=== PATIENT | female | born 1975 | race Caucasian/White ===

== ENCOUNTER → 2017-05-03 | Outpatient (CLI) | payer BC | END | disposition home or self-care (01) | LOC: CANPRECLI → LABWHC1 16:35 | PROVIDERS: ATTEND Otolaryngology | DX: Z53.9 Procedure and treatment not carried out, unspecified reason (principal) ==

== ENCOUNTER → 2018-07-19 | Outpatient (CLI) | payer BC ==
--- NOTE | 2018-07-19 16:41 | US ---
EXAMINATION TYPE: US pelvic complete DATE OF EXAM: 07/19/2018 COMPARISON: NONE CLINICAL HISTORY: 43-year-old female N92.4 EXCESSIVE BLEEDING IN PREMENOPAUSAL PERIOD, patient went f or a period of 70 days without menses and has had two episodes of menses recently TECHNIQUE: Transabdominal (TA). Findings: EXAM MEASUREMENTS: Uterus: 11.2 x 5.3 x 5.9cm Endometrial Stripe: 0.4cm Right Ovary: 2.7 x 2.1 x 2.1cm Left Ovary: 2.3 x 1.9 x 2.0cm 1. Uterus: Anteverted, wnl 2. Endometrium: wnl 3. Right Ovary: wnl 4. Left Ovary: wnl 5. Bilateral Adnexa: wnl 6. Posterior cul-de-sac: wnl IMPRESSION: Unremarkable transabdominal sonographic examination of the pelvis.
== END | disposition home or self-care (01) ==
LOC: RADUSWWP 12:52
PROVIDERS: ATTEND Internal Medicine
DX: N92.4 Excessive bleeding in the premenopausal period (principal)
CPT/HCPCS: 76856

== ENCOUNTER → 2019-06-03 | Outpatient (CLI) | payer BC ==
[2019-06-04 11:38] LABS: Lobster IgE 1.71 kU/L (<0.10); Lobster IgE Class CLASS 2
== END | disposition home or self-care (01) ==
LOC: LABWHC1 15:20
PROVIDERS: ATTEND Allergy & Immunology
DX: L50.1 Idiopathic urticaria (principal)
CPT/HCPCS: 36415; 86003

== ENCOUNTER 2019-06-05 | Observation (INO) | payer BC | END 2019-06-07 13:49 | disposition home or self-care (01) | PROVIDERS: ADMIT Internal Medicine | CPT/HCPCS: 96376 ×2; 96361 ×3; 96375 ×2; 96374; 99285; 36415; 94640 ×3; 86738 ×2; 80053; 86696; 86694; 86695; 83605; 85025; 87040; 87502; 71046; G0378 ×3; J1200; J2920 ×2; J2930; C9113 ==

== ENCOUNTER 2022-01-27 13:34 | Emergency (ER) | payer BC ==
[2022-01-27 13:42] VITALS: TEMP 98.3
[2022-01-27] MEDS ORDERED: diphenhydrAMINE 50 MG/ML 1 ML VIAL IVP STA (16:42)
[2022-01-27] MEDS ORDERED: SODIUM CHLORIDE 0.9% 1,000 ML IV STA (16:42)
[2022-01-27] MEDS ORDERED: KETOROLAC 15 MG/ML 1 ML VIAL IVP STA (16:42)
[2022-01-27] MEDS ORDERED: FAMOTIDINE 20 MG/2 ML VIAL IV STA (16:42)
--- NOTE | 2022-01-27 19:01 | ED ---
Skin/Abscess/FB HPI - General Chief complaint: Skin/Abscess/Foreign Body Stated complaint: skin reaction to vaccine Time Seen by Provider: 01/27/22 16:29 Source: patient Mode of arrival: ambulatory Limitations: no limitations - History of Present Illness Initial comments: Patient is a 46-year-old female who presents to the emergency department for allergic reaction. Patient got allergy injection into her right arm yesterday by her cleaner industrial. States it was not a new medication however does not know what the injection was. Patient states a few hours after the injection she noticed redness on the arm around injection site. States redness is spreading today. She reports mild pain in her arm which is unchanged from her typical pain after injections. Denies fever, chills, nausea, vomiting. Denies chest pain, shortness of breath, throat irritation and swelling. - Related Data Home Medications Medication Instructions Recorded Confirmed Albuterol Inhaler [Ventolin Hfa 2 puff INHALATION RT-Q6H PRN 06/05/19 06/05/19 Inhaler] Albuterol Nebulized [Ventolin 2.5 mg INHALATION RT-TID PRN 06/05/19 06/05/19 Nebulized] Azelastine HCl 2 spray EA NOSTRIL BID 06/05/19 06/05/19 EPINEPHrine (Auto Inject) [Epipen] 0.3 mg IM ONCE PRN 06/05/19 06/05/19 Fexofenadine HCl [Teri Allergy] 180 mg PO BID 06/05/19 06/05/19 Fluticasone Propion/Salmeterol 1 puff INHALATION RT-BID 06/05/19 06/05/19 [Advair 250-50 Diskus] Mometasone Furoate [Nasonex Nasal 2 spray EA NOSTRIL HS 06/05/19 06/05/19 [place]] Montelukast [Singulair] 10 mg PO HS 06/05/19 06/05/19 Triamcinolone 0.1% Cream [Kenalog 1 applic TOPICAL BID PRN 06/05/19 06/05/19 0.1% Cream] valACYclovir HCL [Valtrex] 2,000 mg PO BID 06/05/19 06/05/19 Previous Rx's Medication Instructions Recorded Famotidine [Pepcid] 20 mg PO BID #30 tablet 06/07/19 predniSONE 10 mg PO DAILY #30 tab 06/07/19 Allergies Allergy/AdvReac Type Severity Reaction Status Date / Time fluticasone [From Flonase] Allergy Swelling Verified 01/27/22 13:42 Review of Systems ROS Statement: Those systems with pertinent positive or pertinent negative responses have been documented in the HPI. ROS Other: All systems not noted in ROS Statement are negative. Past Medical History Past Medical History: No Reported History History of Any Multi-Drug Resistant Organisms: None Reported Past Surgical History: Section Past Psychological History: No Psychological Hx Reported Smoking Status: Never smoker Past Alcohol Use History: None Reported Past Drug Use History: None Reported General Exam Limitations: no limitations General appearance: alert, in no apparent distress Respiratory exam: Present: normal lung sounds bilaterally. Absent: respiratory distress, wheezes, rales, rhonchi, stridor Cardiovascular Exam: Present: regular rate, normal rhythm, normal heart sounds. Absent: systolic murmur, diastolic murmur, rubs, gallop, clicks Extremities exam: Present: other (erythema and urticaria over lateral right upper arm surrounding injection site. no warmth, no tenderness with palpation. Neurovascularly intact) Neurological exam: Present: alert, oriented X3, CN II-XII intact Psychiatric exam: Present: normal affect, normal mood Skin exam: Present: warm, dry, intact, normal color Course Vital Signs 01/27/22 01/27/22 13:40 19:36 Temperature 98.3 F Pulse Rate 65 66 Respiratory 14 16 Rate Blood Pressure 110/63 114/58 O2 Sat by Pulse 98 98 Oximetry Medical Decision Making - Medical Decision Making This is a 46-year-old female presenting with allergic reaction. Rash does not appear to be infectious in nature. Rash is limited to right upper arm near injection site. Patient given allergy cocktail which improved redness and urticaria. Patient has no shortness of breath or wheezing, no anaphylactic symptoms. She'll be discharged home. Dr. Valdes is my attending. Disposition Clinical Impression: Allergic reaction Disposition: HOME SELF-CARE Condition: Good Instructions (If sedation given, give patient instructions): General Allergic Reaction (ED) Additional Instructions: Continue Benadryl for any redness or itching. Follow-up with cleaner industrial and primary care provider in one to 2 days. Return to the emergency department experience new, concerning, or worsening symptoms. Is patient prescribed a controlled substance at d/c from ED?: No Referrals: Demetra Crouch MD [Primary Care Provider] - 1-2 days
[2022-01-27 19:37] VITALS: BP 114/58; PULSE 66; RESP 16
== END 2022-01-27 19:36 | disposition home or self-care (01) ==
LOC: EC 13:34
DX: T80.69XA Other serum reaction due to other serum, initial encounter (principal); Z91.09 Other allergy status, other than to drugs and biological substances
CPT/HCPCS: 99283; 96374; 96375 ×2; 96361; J1200; J1885

== ENCOUNTER 2024-07-12 15:39 | Emergency (ER) | payer BC ==
[2024-07-12 15:44] VITALS: RESP 18; TEMP 97.8
--- NOTE | 2024-07-12 16:00 | ED ---
Allergic Reaction HPI - General Chief complaint: Allergic Reaction Stated complaint: Reaction to Meds Time Seen by Provider: 07/12/24 16:00 Source: patient, RN notes reviewed Mode of arrival: ambulatory Limitations: no limitations - History of Present Illness Initial Comments: 49-year-old female presented to ER for evaluation of allergic reaction. Patient states she has numerous environmental allergies and receives allergy shots. She received 2 injections this morning around 830 at her doctor's office. Patient states she went to work and started to feel a tingling sensation in her bilateral arms. She noticed a large type forming on both arms as well. Patient does report a tightness sensation in her lungs. She did take 2 Benadryl earlier today without relief symptoms. Patient states coworkers told her to report to the ER before symptoms worsened as they have in the past. Patient denies any difficulty breathing, tongue or throat swelling. No other complaints at this time. - Related Data Home Medications Medication Instructions Recorded Confirmed Albuterol Inhaler [Ventolin Hfa 2 puff INHALATION RT-Q6H PRN 06/05/19 06/05/19 Inhaler] Albuterol Nebulized [Ventolin 2.5 mg INHALATION RT-TID PRN 06/05/19 06/05/19 Nebulized] Azelastine HCl [Astelin Nasal 2 spray EA NOSTRIL BID 06/05/19 06/05/19 [place]] EPINEPHrine (Auto Inject) [Epipen] 0.3 mg IM ONCE PRN 06/05/19 06/05/19 Fexofenadine HCl [Teri Allergy] 180 mg PO BID 06/05/19 06/05/19 Fluticasone Propion/Salmeterol 1 puff INHALATION RT-BID 06/05/19 06/05/19 [Advair 250-50 Diskus] Mometasone Furoate [Nasonex Nasal 2 spray EA NOSTRIL HS 06/05/19 06/05/19 [place]] Montelukast [Singulair] 10 mg PO HS 06/05/19 06/05/19 Triamcinolone 0.1% Cream [Kenalog 1 applic TOPICAL BID PRN 06/05/19 06/05/19 0.1% Cream] valACYclovir HCL [Valtrex] 2,000 mg PO BID 06/05/19 06/05/19 Previous Rx's Medication Instructions Recorded Famotidine [Pepcid] 20 mg PO BID #30 tablet 06/07/19 predniSONE 10 mg PO DAILY #30 tab 06/07/19 Allergies Allergy/AdvReac Type Severity Reaction Status Date / Time fluticasone [From Flonase] Allergy Swelling Verified 07/12/24 15:44 Review of Systems ROS Statement: Those systems with pertinent positive or pertinent negative responses have been documented in the HPI. ROS Other: All systems not noted in ROS Statement are negative. Past Medical History Past Medical History: No Reported History History of Any Multi-Drug Resistant Organisms: None Reported Past Surgical History: Section Past Psychological History: No Psychological Hx Reported Smoking Status: Never smoker Past Alcohol Use History: None Reported Past Drug Use History: None Reported General Exam Limitations: no limitations General appearance: alert, in no apparent distress ENT exam: Present: normal exam, normal oropharynx, mucous membranes moist Neck exam: Present: normal inspection. Absent: tenderness, meningismus, lymphadenopathy Respiratory exam: Present: normal lung sounds bilaterally. Absent: respiratory distress, wheezes, rales, rhonchi, stridor Cardiovascular Exam: Present: regular rate, normal rhythm, normal heart sounds. Absent: systolic murmur, diastolic murmur, rubs, gallop, clicks Extremities exam: Present: normal inspection, full ROM, normal capillary refill. Absent: tenderness, pedal edema, joint swelling, calf tenderness Neurological exam: Present: alert, oriented X3, CN II-XII intact Skin exam: Present: warm, dry, intact, normal color, rash (large hive to bilateral dorsal upper arm with overying erythema) Course Vital Signs 07/12/24 07/12/24 15:40 17:43 Temperature 97.8 F Pulse Rate 84 67 Respiratory 18 18 Rate Blood Pressure 131/81 114/61 O2 Sat by Pulse 97 96 Oximetry - Reevaluation(s) Reevaluation #1: 07/12/24 16:54 Patient reevaluated. No signs of acute distress. Patient reporting improvement of chest tightness. Medical Decision Making - Medical Decision Making Was pt. sent in by a medical professional or institution (, PA, SPEAKING UNIT ASSEMBLER, urgent care, hospital, or shelter...) When possible be specific @ -No Did you speak to anyone other than the patient for history (EMS, parent, family, police, friend...)? What history was obtained from this source @ -No Did you review nursing and triage notes (agree or disagree)? Why? @ -I reviewed and agree with nursing and triage notes Were old charts reviewed (outside hosp., previous admission, EMS record, old EKG, old radiological studies, urgent care reports/EKG's, shelter records)? Report findings @ -Prior medical record Differential Diagnosis (chest pain, altered mental status, abdominal pain women, abdominal pain men, vaginal bleeding, weakness, fever, dyspnea, syncope, headache, dizziness, GI bleed, back pain, seizure, CVA, palpatations, mental health, musculoskeletal)? @ -Allergic reaction, anaphylaxis, cellulitis...this list is not meant to be all inclusive EKG interpreted by me (3pts min.). @ -As above X-rays interpreted by me (1pt min.). @ -None done CT interpreted by me (1pt min.). @ -None done U/S interpreted by me (1pt. min.). @ -None done What testing was considered but not performed or refused? (CT, X-rays, U/S, labs)? Why? @ -None What meds were considered but not given or refused? Why? @ -None Did you discuss the management of the patient with other professionals (professionals i.e. , PA, SPEAKING UNIT ASSEMBLER, lab, RT, psych nurse, high school social science teacher, commercial glazier, teacher, information officer, shoe parts caser)? Give summary @ -No Was smoking cessation discussed for >3mins.? @ -No Was critical care preformed (if so, how long)? @ -No Were there social determinants of health that impacted care today? How? (Homelessness, low income, unemployed, alcoholism, drug addiction, transportation, low edu. Level, literacy, decrease access to med. care, snf, rehab)? @ -No Was there de-escalation of care discussed even if they declined (Discuss DNR or withdrawal of care, Hospice)? DNR status @ -No What co-morbidities impacted this encounter? (DM, HTN, Smoking, COPD, CAD, Cancer, CVA, ARF, Chemo, Hep., AIDS, mental health diagnosis, sleep apnea, morbid obesity)? @ -None Was patient admitted / discharged? Hospital course, mention meds given and route, prescriptions, significant lab abnormalities, going to OR and other pertinent info. @ -Discharge. 49-year-old female presented to the ER for evaluation of allergic reaction. Vitals within acceptable limits. Patient in no signs of acute distress supporting own airway. There are 2 large hives to bilateral dorsal upper arms consistent with allergic reaction. Lung sounds clear throughout no wheezing. No tongue or oropharynx edema. Patient will receive allergic reaction cocktail including Solu-Medrol, Benadryl and Pepcid and be monitored in the ER. EKG completed as she was complaining of chest tightness believed to be from allergic reaction. EKG showing a sinus rhythm. Upon reevaluation, patient reporting improvement of chest discomfort and improvement of hives. These visually do appear improved. Patient will be discharged in stable condition. I instructed to take 50 mg of Benadryl every 6 hours for at least 24 hours. Patient has EpiPen at home. Return parameters discussed. Patient discharged in stable condition with follow-up to PCP. Patient verbally expressed understanding agreement care plan. Case discussed with ED attending, Dr. Hatch. Undiagnosed new problem with uncertain prognosis? @ -No Drug Therapy requiring intensive monitoring for toxicity (Heparin, Nitro, Insulin, Cardizem)? @ -No Were any procedures done? @ -No Diagnosis/symptom? @ -Allergic reaction Acute, or Chronic, or Acute on Chronic? @ -Acute Uncomplicated (without systemic symptoms) or Complicated (systemic symptoms)? @ -Uncomplicated Side effects of treatment? @ -No Exacerbation, Progression, or Severe Exacerbation? @ -No Poses a threat to life or bodily function? How? (Chest pain, [place], [place], pneumonia, PE, COPD, DKA, ARF, appy, cholecystitis, CVA, Diverticulitis, Homicidal, Suicidal, threat to staff... and all critical care pts) @ -Possibly, allergic reaction can lead to anaphylaxis - EKG Data -: EKG Interpreted by Me EKG Comments: EKG taken at 15: 53 showing a sinus rhythm. No ST segment elevations or depressions. No T wave inversions. Ventricular rate 75, NC 142, QRS duration 85, QT/QTc 376/405. Disposition Clinical Impression: Allergic reaction Disposition: HOME SELF-CARE Condition: Stable Additional Instructions: Continue taking Benadryl 50 mg every 6 hours for the next 24hours. Follow-up with PCP. Return to the ER for any new or worsening concerns. Is patient prescribed a controlled substance at d/c from ED?: No Referrals: Demetra Crouch MD [Primary Care Provider] - 1-2 days Time of Disposition: 17:34
[2024-07-12] MEDS: FAMOTIDINE 20 MG/2 ML VIAL IV STA (16:11)
[2024-07-12] MEDS: methylPREDNISolone SOD SUCCI 125 MG/2 ML VIAL IV STA (16:11)
[2024-07-12] MEDS: diphenhydrAMINE 50 MG/ML 1 ML VIAL IVP STA (16:12)
[2024-07-12 17:44] VITALS: BP 114/61; PULSE 67
== END 2024-07-12 17:44 | disposition home or self-care (01) ==
LOC: EC 15:39
DX: T78.40XA Allergy, unspecified, initial encounter (principal); R07.89 Other chest pain; Z88.6 Allergy status to analgesic agent
CPT/HCPCS: 93005; 99283; 96374; 96375 ×2; J1200; J2919; J1308

== ENCOUNTER 2024-07-12 19:17 | Emergency (ER) | payer BC ==
[2024-07-12 19:21] VITALS: TEMP 98.1
[2024-07-12] MEDS: diphenhydrAMINE 2% CREAM 28.4 GM TUBE TOPICAL STA (20:10)
--- NOTE | 2024-07-12 20:25 | ED ---
General Adult HPI - General Chief complaint: Recheck/Abnormal Lab/Rx Stated complaint: Allergic Reaction/Revisit Time Seen by Provider: 07/12/24 19:26 Source: patient Mode of arrival: ambulatory Limitations: no limitations - History of Present Illness Initial comments: 49-year-old female presenting with chief complaint of allergic reaction. Patient had allergy shots today which she has received before. She was seen here earlier today due to some significant swelling on the bilateral upper arms at the site of injection. She was given Solu-Medrol, Pepcid, and Benadryl and the swelling improved. While she was at work this afternoon in the swelling increased again, she states that she lives quite far away and they advised her to come to the ER again to make sure she was not having another reaction. She is having no difficulty breathing or swallowing. No swelling of the lips or face. No nausea vomiting or abdominal pain. - Related Data Home Medications Medication Instructions Recorded Confirmed Albuterol Inhaler [Ventolin Hfa 2 puff INHALATION RT-Q6H PRN 06/05/19 06/05/19 Inhaler] Albuterol Nebulized [Ventolin 2.5 mg INHALATION RT-TID PRN 06/05/19 06/05/19 Nebulized] Azelastine HCl [Astelin Nasal 2 spray EA NOSTRIL BID 06/05/19 06/05/19 [place]] EPINEPHrine (Auto Inject) [Epipen] 0.3 mg IM ONCE PRN 06/05/19 06/05/19 Fexofenadine HCl [Teri Allergy] 180 mg PO BID 06/05/19 06/05/19 Fluticasone Propion/Salmeterol 1 puff INHALATION RT-BID 06/05/19 06/05/19 [Advair 250-50 Diskus] Mometasone Furoate [Nasonex Nasal 2 spray EA NOSTRIL HS 06/05/19 06/05/19 [place]] Montelukast [Singulair] 10 mg PO HS 06/05/19 06/05/19 Triamcinolone 0.1% Cream [Kenalog 1 applic TOPICAL BID PRN 06/05/19 06/05/19 0.1% Cream] valACYclovir HCL [Valtrex] 2,000 mg PO BID 06/05/19 06/05/19 Previous Rx's Medication Instructions Recorded Famotidine [Pepcid] 20 mg PO BID #30 tablet 06/07/19 predniSONE 10 mg PO DAILY #30 tab 06/07/19 Allergies Allergy/AdvReac Type Severity Reaction Status Date / Time fluticasone [From Flonase] Allergy Swelling Verified 07/12/24 19:21 Review of Systems ROS Statement: Those systems with pertinent positive or pertinent negative responses have been documented in the HPI. ROS Other: All systems not noted in ROS Statement are negative. Past Medical History Past Medical History: Asthma History of Any Multi-Drug Resistant Organisms: None Reported Past Surgical History: Section Past Psychological History: No Psychological Hx Reported Smoking Status: Never smoker Past Alcohol Use History: None Reported Past Drug Use History: None Reported General Exam Limitations: no limitations General appearance: alert, in no apparent distress Head exam: Present: atraumatic, normocephalic, normal inspection Eye exam: Present: normal appearance, EOMI ENT exam: Present: normal oropharynx, mucous membranes moist Neck exam: Present: normal inspection. Absent: meningismus Respiratory exam: Present: normal lung sounds bilaterally. Absent: respiratory distress, wheezes, rales, rhonchi, stridor Cardiovascular Exam: Present: regular rate, normal rhythm, normal heart sounds. Absent: systolic murmur, diastolic murmur, rubs, gallop, clicks Extremities exam: Present: full ROM Neurological exam: Present: alert, oriented X3 Psychiatric exam: Present: normal affect, normal mood Skin exam: Present: urticaria (2 large wheals on the bilateral upper arms at the injection site) Course Vital Signs 07/12/24 19:18 Temperature 98.1 F Pulse Rate 75 Respiratory 18 Rate Blood Pressure 135/79 O2 Sat by Pulse 96 Oximetry Medical Decision Making - Medical Decision Making Was pt. sent in by a medical professional or institution (, PA, QUALITY IMPROVEMENT MANAGER, urgent care, hospital, or correction...) When possible be specific @ -No Did you speak to anyone other than the patient for history (EMS, parent, family, police, friend...)? What history was obtained from this source @ -No Did you review nursing and triage notes (agree or disagree)? Why? @ -I reviewed and agree with nursing and triage notes Were old charts reviewed (outside hosp., previous admission, EMS record, old EKG, old radiological studies, urgent care reports/EKG's, correction records)? Report findings @ -No old charts were reviewed Differential Diagnosis (chest pain, altered mental status, abdominal pain women, abdominal pain men, vaginal bleeding, weakness, fever, dyspnea, syncope, headache, dizziness, GI bleed, back pain, seizure, CVA, palpatations, mental health, musculoskeletal)? @ -Differential includes allergic reaction, anaphylaxis, eczema, not an all- inclusive list EKG interpreted by me (3pts min.). @ -As above X-rays interpreted by me (1pt min.). @ -None done CT interpreted by me (1pt min.). @ -None done U/S interpreted by me (1pt. min.). @ -None done What testing was considered but not performed or refused? (CT, X-rays, U/S, labs)? Why? @ -None What meds were considered but not given or refused? Why? @ -None Did you discuss the management of the patient with other professionals (professionals i.e. , PA, QUALITY IMPROVEMENT MANAGER, lab, RT, psych nurse, social studies department chair, counter manager, teacher, certified juvenile probation officer, foster care case manager)? Give summary @ -No Was smoking cessation discussed for >3mins.? @ -No Was critical care preformed (if so, how long)? @ -No Were there social determinants of health that impacted care today? How? (Homelessness, low income, unemployed, alcoholism, drug addiction, transportation, low edu. Level, literacy, decrease access to med. care, residential, rehab)? @ -No Was there de-escalation of care discussed even if they declined (Discuss DNR or withdrawal of care, Hospice)? DNR status @ -No What co-morbidities impacted this encounter? (DM, HTN, Smoking, COPD, CAD, Cancer, CVA, ARF, Chemo, Hep., AIDS, mental health diagnosis, sleep apnea, morbid obesity)? @ -None Was patient admitted / discharged? Hospital course, mention meds given and route, prescriptions, significant lab abnormalities, going to OR and other pertinent info. @ -49-year-old female presenting with chief complaint of swelling to the bilateral upper arms at the site where she receives some allergy injections tod ay. She has received these before. She is having no difficulty breathing or swallowing. She was seen here in our ER earlier today for the same complaint and was given Solu-Medrol Benadryl and Pepcid. Vital signs are stable heart and lungs are clear to auscultation, no signs of angioedema. Patient was given Benadryl cream for the area. She is educated on today's findings. She can continue taking Benadryl at home as needed. Instructed to contact her doctor regarding this reaction before any future injections. Follow-up with PCP. Report back to ER with any new or worsening symptoms. Discussed return parameters and answered all questions. Patient conveyed verbal understanding and agreed to the plan. I discussed this case in detail with my attending Dr. Valdes Undiagnosed new problem with uncertain prognosis? @ -No Drug Therapy requiring intensive monitoring for toxicity (Heparin, Nitro, Insulin, Cardizem)? @ -No Were any procedures done? @ -No Diagnosis/symptom? @ -Allergic reaction Acute, or Chronic, or Acute on Chronic? @ -Acute Uncomplicated (without systemic symptoms) or Complicated (systemic symptoms)? @ -Uncomplicated Side effects of treatment? @ -No Exacerbation, Progression, or Severe Exacerbation? @ -No Poses a threat to life or bodily function? How? (Chest pain, [place], [place], pneumonia, PE, COPD, DKA, ARF, appy, cholecystitis, CVA, Diverticulitis, Homicidal, Suicidal, threat to staff... and all critical care pts) @ -unlikely Disposition Clinical Impression: Allergic reaction Disposition: HOME SELF-CARE Condition: Good Instructions (If sedation given, give patient instructions): Urticaria (ED) Additional Instructions: Follow-up with PCP. Report back to ER with any new or worsening symptoms. You may take Benadryl at home as needed per package instructions. Is patient prescribed a controlled substance at d/c from ED?: No Referrals: Demetra Crouch MD [Primary Care Provider] - 1-2 days Time of Disposition: 20:25
[2024-07-12 20:34] VITALS: BP 133/73; PULSE 63; RESP 16
== END 2024-07-12 20:34 | disposition home or self-care (01) ==
LOC: EC 19:17
DX: T78.40XA Allergy, unspecified, initial encounter (principal); Z88.6 Allergy status to analgesic agent; X58.XXXA Exposure to other specified factors, initial encounter
CPT/HCPCS: 99283

== ENCOUNTER 2024-08-04 23:27 | Emergency (ER) | payer BC ==
--- NOTE | 2024-08-04 23:51 | ED ---
General Adult HPI - General Chief complaint: Skin/Abscess/Foreign Body Stated complaint: Rash Time Seen by Provider: 08/04/24 23:35 Source: patient, RN notes reviewed Mode of arrival: ambulatory Limitations: no limitations - History of Present Illness Initial comments: This is a 49-year-old female presenting to the Emergency Department for complaints of pruritus and generalized rash that occurred an hour prior to arrival. Patient states that after she was been exercising she began to notice red spots forming of her arms and of her face. Patient denies use of new soaps, lotions, detergents, medications, environmental exposures. States that she has multiple allergies and similar symptoms have occurred in the past. She denies tongue or lip swelling, difficulty breathing. - Related Data Home Medications Medication Instructions Recorded Confirmed Albuterol Inhaler [Ventolin Hfa 2 puff INHALATION RT-Q6H PRN 06/05/19 06/05/19 Inhaler] Albuterol Nebulized [Ventolin 2.5 mg INHALATION RT-TID PRN 06/05/19 06/05/19 Nebulized] Azelastine HCl [Astelin Nasal 2 spray EA NOSTRIL BID 06/05/19 06/05/19 [place]] EPINEPHrine (Auto Inject) [Epipen] 0.3 mg IM ONCE PRN 06/05/19 06/05/19 Fexofenadine HCl [Teri Allergy] 180 mg PO BID 06/05/19 06/05/19 Fluticasone Propion/Salmeterol 1 puff INHALATION RT-BID 06/05/19 06/05/19 [Advair 250-50 Diskus] Mometasone Furoate [Nasonex Nasal 2 spray EA NOSTRIL HS 06/05/19 06/05/19 [place]] Montelukast [Singulair] 10 mg PO HS 06/05/19 06/05/19 Triamcinolone 0.1% Cream [Kenalog 1 applic TOPICAL BID PRN 06/05/19 06/05/19 0.1% Cream] valACYclovir HCL [Valtrex] 2,000 mg PO BID 06/05/19 06/05/19 Previous Rx's Medication Instructions Recorded Famotidine [Pepcid] 20 mg PO BID #30 tablet 06/07/19 predniSONE 10 mg PO DAILY #30 tab 06/07/19 Allergies Allergy/AdvReac Type Severity Reaction Status Date / Time fluticasone [From Flonase] Allergy Swelling Verified 08/04/24 23:30 Review of Systems ROS Statement: Those systems with pertinent positive or pertinent negative responses have been documented in the HPI. ROS Other: All systems not noted in ROS Statement are negative. Past Medical History Past Medical History: Asthma History of Any Multi-Drug Resistant Organisms: None Reported Past Surgical History: Section Past Psychological History: No Psychological Hx Reported Smoking Status: Never smoker Past Alcohol Use History: None Reported Past Drug Use History: None Reported General Exam Limitations: no limitations General appearance: alert, in no apparent distress Eye exam: Present: normal appearance, PERRL, EOMI. Absent: scleral icterus, conjunctival injection, periorbital swelling ENT exam: Present: normal exam, mucous membranes moist Neck exam: Present: normal inspection. Absent: tenderness, meningismus, lymphadenopathy Respiratory exam: Present: normal lung sounds bilaterally. Absent: respiratory distress, wheezes, rales, rhonchi, stridor Cardiovascular Exam: Present: regular rate, normal rhythm, normal heart sounds. Absent: systolic murmur, diastolic murmur, rubs, gallop, clicks GI/Abdominal exam: Present: soft, normal bowel sounds. Absent: distended, te nderness, guarding, rebound, rigid Extremities exam: Present: normal inspection, full ROM, normal capillary refill. Absent: tenderness, pedal edema, joint swelling, calf tenderness Skin exam: Present: warm, dry, intact, normal color. Absent: rash Course Vital Signs 08/04/24 08/05/24 23:28 01:09 Temperature 98.2 F 97.7 F Pulse Rate 85 74 Respiratory 18 16 Rate Blood Pressure 112/73 122/72 O2 Sat by Pulse 97 99 Oximetry Medical Decision Making - Medical Decision Making Was pt. sent in by a medical professional or institution (, PA, FLOOR COVERING PRINTER, urgent care, hospital, or intermediate...) When possible be specific @ -No Did you speak to anyone other than the patient for history (EMS, parent, family, police, friend...)? What history was obtained from this source @ -No Did you review nursing and triage notes (agree or disagree)? Why? @ -I reviewed and agree with nursing and triage notes Were old charts reviewed (outside hosp., previous admission, EMS record, old EKG, old radiological studies, urgent care reports/EKG's, intermediate records)? Report findings @ -No old charts were reviewed Differential Diagnosis (chest pain, altered mental status, abdominal pain women, abdominal pain men, vaginal bleeding, weakness, fever, dyspnea, syncope, headache, dizziness, GI bleed, back pain, seizure, CVA, palpatations, mental health, musculoskeletal)? @ -Anaphylaxis, angioedema, pruritus, urticaria, drug eruption, this list is not all inclusive EKG interpreted by me (3pts min.). @ -None X-rays interpreted by me (1pt min.). @ -None done CT interpreted by me (1pt min.). @ -None done U/S interpreted by me (1pt. min.). @ -None done What testing was considered but not performed or refused? (CT, X-rays, U/S, labs)? Why? @ -None What meds were considered but not given or refused? Why? @ -None Did you discuss the management of the patient with other professionals (professionals i.e. , PA, FLOOR COVERING PRINTER, lab, RT, psych nurse, social security assessor, cuff maker, teacher, air defense artillery officer, egg caser)? Give summary @ -No Was smoking cessation discussed for >3mins.? @ -No Was critical care preformed (if so, how long)? @ -No Were there social determinants of health that impacted care today? How? (Homelessness, low income, unemployed, alcoholism, drug addiction, transportation, low edu. Level, literacy, decrease access to med. care, long-term, rehab)? @ -No Was there de-escalation of care discussed even if they declined (Discuss DNR or withdrawal of care, Hospice)? DNR status @ -No What co-morbidities impacted this encounter? (DM, HTN, Smoking, COPD, CAD, Cancer, CVA, ARF, Chemo, Hep., AIDS, mental health diagnosis, sleep apnea, morbid obesity)? @ -None Was patient admitted / discharged? Hospital course, mention meds given and route, prescriptions, significant lab abnormalities, going to OR and other pertinent info. @ -Discharged. 49-year-old female presenting to emergency room for complaints of generalized rash. Overall patient is well-appearing and no signs of respiratory distress. There is no visible rash over the patient's body is thorough skin examination was completed of bilateral upper lower extremities, abdomen, back palms and soles. Patient provided with allergic cocktail. Reevaluation states that she is feeling well. Recommend follow-up with primary care provider. Case discussed with Dr. Velarde Undiagnosed new problem with uncertain prognosis? @ -No Drug Therapy requiring intensive monitoring for toxicity (Heparin, Nitro, Insulin, Cardizem)? @ -No Were any procedures done? @ -No Diagnosis/symptom? @ -generalized puritis Acute, or Chronic, or Acute on Chronic? @ -acute Uncomplicated (without systemic symptoms) or Complicated (systemic symptoms)? @ -uncomplicated Side effects of treatment? @ -No Exacerbation, Progression, or Severe Exacerbation? @ -No Poses a threat to life or bodily function? How? (Chest pain, [place], DC, pneumonia, PE, COPD, DKA, ARF, appy, cholecystitis, CVA, Diverticulitis, Homicidal, Suicidal, threat to staff... and all critical care pts) @ -No Disposition Clinical Impression: Generalized pruritus Disposition: HOME SELF-CARE Condition: Stable Instructions (If sedation given, give patient instructions): Itchy Skin (ED) Additional Instructions: Please return to the Emergency Department if symptoms worsen or any other concerns. Is patient prescribed a controlled substance at d/c from ED?: No Referrals: Demetra Crouch MD [Primary Care Provider] - 1-2 days Time of Disposition: 00:51
[2024-08-05] MEDS: methylPREDNISolone SOD SUCCI 125 MG/2 ML VIAL IV STA (00:21)
[2024-08-05] MEDS: diphenhydrAMINE 50 MG/ML 1 ML VIAL IVP STA (00:22)
[2024-08-05] MEDS: FAMOTIDINE 20 MG/2 ML VIAL IV STA (00:22)
[2024-08-05 01:15] VITALS: BP 122/72; PULSE 74; RESP 16; TEMP 97.7
== END 2024-08-05 01:09 | disposition home or self-care (01) ==
LOC: EC 23:27
DX: L29.9 Pruritus, unspecified (principal); Z88.8 Allergy status to other drugs, medicaments and biological substances
CPT/HCPCS: 99282; 96374; 96375 ×2; J1200; J2919; J1308